=== PATIENT | female | born 1945 | race Caucasian/White ===

== ENCOUNTER 2022-09-07 12:06 | Emergency (ER) | payer OTHER, SELFPAY ==
--- NOTE | ~2022-09-07 | XR_ITS ---
EXAMINATION: XR CHEST CLINICAL INFORMATION: Shortness of breath COMPARISON: 09/07/2022 1:22 PM TECHNIQUE: 2 views of the chest were obtained. FINDINGS: No significant abnormality is noted involving the heart, lungs, mediastinum, bony thorax or soft tissues. I suspect that the triangular density in the right cardiophrenic angle represents a prominent pericardial fat pad. No interval change when compared to this study from earlier today. XR/XR chest 2V IMPRESSION: No acute intrathoracic disease.
--- NOTE | ~2022-09-07 | XR_ITS ---
EXAMINATION: XR CHEST CLINICAL INFORMATION: Cough, RSV. COMPARISON: None TECHNIQUE: Frontal view of the chest was obtained. FINDINGS: Triangular opacity seen at the right lung base medially. The right upper lung field and left lung are clear. The heart and mediastinal structures are unremarkable. No significant cardiomediastinal shift. Probable old healed fourth rib fracture. XR/XR chest 1V IMPRESSION: Triangular opacity medially at the right lung base is nonspecific and of indeterminate age. This could represent pleural/pericardial reflection/fat pad, but atelectasis cannot be excluded. A lateral view would be helpful in this patient.
[2022-09-07 12:36] VITALS: BP 123/60; PULSE 70; RESP 18; TEMP 36.4; O2SAT 97; BMI 26.8
--- NOTE | 2022-09-07 12:36 | ED_ITS ---
HPI - General Adult General Chief complaint: Upper Respiratory Symptoms <Yue Mcclellan MD - Last Filed: 09/07/22 12:42> Stated complaint: Chest pain/Cough <Yue Mcclellan MD - Last Filed: 09/07/22 12:42> Time Seen by Provider: 09/07/22 17:44 <Yue Mcclellan MD - Last Filed: 09/07/22 12:42> Source: patient <DOMINIQUE Ko - Last Filed: 09/07/22 17:53> Mode of arrival: ambulatory <DOMINIQUE Ko - Last Filed: 09/07/22 17:53> Limitations: no limitations <DOMINIQUE Ko - Last Filed: 09/07/22 17:53> History of Present Illness HPI narrative: Patient is a 77 year old assigned female at with no reported medical history presenting to the emergency department today with a cough. Patient states that for the last 2 weeks she has had a persistent cough and now her chest hurts when she coughs. Patient denies any dizziness, lightheadedness, abdominal pain, nausea, vomiting, fever, chills, blurry vision, double vision, loss of vision, difficulty breathing, shortness of breath, back pain, night sweats, pain with urination, increased urinary frequency, increased urinary urgency, blood in her urine or stool, syncope or a near syncopal episode, recent trauma or falls, bowel incontinence, bladder incontinence, bowel retention, bladder retention, or any other complaints at this time. <DOMINIQUE Ko - Last Filed: 09/07/22 17:53> Onset (ago): week(s) (2) <DOMINIQUE Ko - Last Filed: 09/07/22 17:53> Severity: mild <DOMINIQUE Ko - Last Filed: 09/07/22 17:53> Severity scale (1-10): 2 <DOMINIQUE Ko - Last Filed: 09/07/22 17:53> Relieving factors: none <DOMINIQUE Ko - Last Filed: 09/07/22 17:53> Exacerbating factors: other (coughing) <DOMINIQUE Ko Last Filed: 09/07/22 17:53> Associated symptoms: cough <DOMINIQUE Ko - Last Filed: 09/07/22 17:53> Treatments prior to arrival: none <DOMINIQUE Ko - Last Filed: 09/07/22 17:53> Related Data Home medications: Previous Rx's Medication Instructions Recorded benzonatate 100 mg capsule 100 mg PO BID PRN cough 7 days #14 09/07/22 caps <Yue Mcclellan MD - Last Filed: 09/07/22 12:42> Allergies/adverse reactions: Allergies Allergy/AdvReac Type Severity Reaction Status Date / Time No Known Allergies Allergy Verified 09/07/22 12:39 <Yue Mcclellan MD - Last Filed: 09/07/22 12:42> Review of Systems Constitutional: Constitutional: Reports no additional constitutional complaints, Denies chills, Denies fever(s) and Denies night sweats <DOMINIQUE Ko - Last Filed: 09/07/22 17:53> Eyes: Eyes: Reports no additional eye complaints, Denies blurry vision, Denies change in vision, Denies diplopia, Denies eye discharge, Denies loss of vision and Denies eye pain <DOMINIQUE Ko - Last Filed: 09/07/22 17:53> ENT: Denies dizziness <DOMINIQUE Ko - Last Filed: 09/07/22 17:53> Cardiovascular: Cardiovascular: Reports no additional cardiovascular complaints, Reports chest pain (when coughing), Denies lightheadedness, Denies Loss of Consciousness and Denies dyspnea <DOMINIQUE Ko - Last Filed: 09/07/22 17:53> Respiratory: Respiratory: Reports no additional respiratory complaints, Reports cough and Denies dyspnea <DOMINIQUE Ko - Last Filed: 09/07/22 17:53> Gastrointestinal: Gastrointestinal: Reports no additional gastrointestinal complaints, Denies abdominal pain, Denies melena, Denies hematochezia, Denies change in bowel habits and Denies change in stool character <DOMINIQUE Ko Last Filed: 09/07/22 17:53> Genitourinary: Genitourinary: Denies hematuria, Denies urinary frequency, Denies dysuria, Denies urinary incontinence, Denies urinary hesitancy and Denies urinary urgency <DOMINIQUE Ko Last Filed: 09/07/22 17:53> Musculoskeletal: Musculoskeletal: Reports no additional musculoskeletal complaints, Denies numbness and Denies tingling <DOMINIQUE Ko - Last Filed: 09/07/22 17:53> Neurologic: Denies dizziness, Denies loss of vision, Denies numbness and Denies tingling <DOMINIQUE Ko - Last Filed: 09/07/22 17:53> Psychiatric: Psychiatric: Reports no additional psychiatric complaints <DOMINIQUE Ko - Last Filed: 09/07/22 17:53> Endocrine: Endocrine: Reports no additional endocrine complaints <DOMINIQUE Ko - Last Filed: 09/07/22 17:53> Hematologic/Lymphatic: Hematologic/Lymphatic: Reports no additional hematologic/lymphatic complaints <DOMINIQUE Ko - Last Filed: 09/07/22 17:53> Allergic/Immunologic: Allergic/Immunologic: Reports no additional allergic/immunologic complaints <DOMINIQUE Ko - Last Filed: 09/07/22 17:53> PMFSH Past Medical History Attestation statement: The following information was validated with the patient. <DOMINIQUE Ko - Last Filed: 09/07/22 17:53> Source: old records reviewed <DOMINIQUE Ko - Last Filed: 09/07/22 17:53> Physical Exam ED Vital Signs: Vital Signs - 24 hr 09/07/22 12:36 Temperature 97.6 F Pulse Rate 70 Respiratory Rate 18 Blood Pressure 123/60 Pulse Oximetry 97 Oxygen Delivery Method Room Air BMI result Body Mass Index 26.8 <Yue Mcclellan MD - Last Filed: 09/07/22 12:42> Vital Signs - 24 hr 09/07/22 12:36 Temperature 97.6 F Pulse Rate 70 Respiratory Rate 18 Blood Pressure 123/60 Pulse Oximetry 97 Oxygen Delivery Method Room Air BMI result Body Mass Index 26.8 <DOMINIQUE Ko - Last Filed: 09/07/22 17:53> Const General: cooperative, no acute distress, alert and awake <DOMINIQUE Ko - Last Filed: 09/07/22 17:53> Nutritional Appearance: well nourished <DOMINIQUE Ko - Last Filed: 09/07/22 17:53> Orientation/consciousness: patient oriented x3 <DOMINIQUE Ko - Last Filed: 09/07/22 17:53> Limitations: no limitations <Radha Tuckerlaila TN - Last Filed: 09/07/22 17:53> HENMT Head: Yes normal to inspection and Yes atraumatic <Radha Tuckerlaila TN - Last Filed: 09/07/22 17:53> Ears: hearing grossly normal bilaterally and external ears normal <Radhaetienne Tuckerlaila TN - Last Filed: 09/07/22 17:53> General nose exam: Normal external nose present, no nasal discharge noted and no epistaxis <Radha Tuckerlaila TN - Last Filed: 09/07/22 17:53> Face and sinus: Yes normal facial exam, No abrasion and No laceration <Radha Aylin TN - Last Filed: 09/07/22 17:53> Mouth: Normal oral and palatal mucosa present, no drooling and no muffled voice <Radhaetienne Tuckerlaila TN - Last Filed: 09/07/22 17:53> Eyes General: appearance normal, both eyes and all related structures <Radhaetienne Tuckerlaila TN - Last Filed: 09/07/22 17:53> Periorbital: periorbital findings normal <Radha Tuckerlaila TN - Last Filed: 09/07/22 17:53> Eyelids: Yes eyelids normal <Radha Tuckerlaila TN - Last Filed: 09/07/22 17:53> Conjunctivae: conjunctivae normal <Radha Tuckerlaila TN - Last Filed: 09/07/22 17:53> Pupils: Equal, round and reactive pupils present <Radha Aylin TN - Last Filed: 09/07/22 17:53> EOM: EOMs intact bilaterally <Radha Tuckerlaila TN - Last Filed: 09/07/22 17:53> Neck Neck: Yes normal visual inspection, Yes full ROM and Yes no lymphadenopathy <Radha Aylin TN - Last Filed: 09/07/22 17:53> Chest Chest palpation & inspection: normal inspection of the chest <DOMINIQUE Ko - Last Filed: 09/07/22 17:53> Resp Effort & Inspection: normal respiratory effort and able to speak in complete sentences <Radha Viera TN - Last Filed: 09/07/22 17:53> Auscultation: clear to auscultation bilaterally <Radha Viera PA - Last Filed: 09/07/22 17:53> Cardio Rate: regular rate <Radha Viera PA - Last Filed: 09/07/22 17:53> Rhythm: regular rhythm <Radha Viera PA - Last Filed: 09/07/22 17:53> GI Inspection: Yes normal to inspection <Radha Viera PA - Last Filed: 09/07/22 17:53> Neuro General: patient oriented x3 and moves all extremities <Radha Viera PA - Last Filed: 09/07/22 17:53> Cranial nerves: Yes Equal, round and reactive pupils present <Radha Viera PA - Last Filed: 09/07/22 17:53> Cognition (Neuro): normal cognition <Radha Viera PA - Last Filed: 09/07/22 17:53> Motor exam (neuro): 5/5 motor strength present throughout <Radha Viera PA - Last Filed: 09/07/22 17:53> Sensory Exam: Normal double simultaneous stimulation for sensation <Radha Viera PA - Last Filed: 09/07/22 17:53> Coordination: [id number] test normal <Radha Viera PA - Last Filed: 09/07/22 17 :53> Extrem General: Yes normal to inspection, Yes full ROM and Yes capillary refill normal <Radha Viera PA - Last Filed: 09/07/22 17:53> Psych Appearance: grossly normal <Radha Tuckerlaila PA - Last Filed: 09/07/22 17:53> Mental Status: mental status grossly normal <Radha Viera PA - Last Filed: 09/07/22 17:53> Affect: normal affect <Radha Viera PA - Last Filed: 09/07/22 17:53> Attitude: cooperative <Radha TuckerDOMINIQUE ulloa - Last Filed: 09/07/22 17:53> Thought process: Normal thought process present <Radha TuckerDOMINIQUE ulloa - Last Filed: 09/07/22 17:53> Thought content: Normal thought content present <Radha TuckerDOMINIQUE ulloa - Last Filed: 09/07/22 17:53> Insight: Good insight present (Psych) <DOMINIQUE Ko - Last Filed: 09/07/22 17:53> Course Course Course Narrative: -c/o coughing for 2 weeks, dry cough, CP sternal area, intermittent, hurting now, been constant since yesterday , almost 24 hours now -c/o ZEE since last night, took advil last night -pt states initially she sarted feeling better, and couple of days all her symptoms returned -pt was exposed to her grandaughter who tested + for RSV -PMH: hypothyroidsim -PE: well apearing, clear lung sounds, o2 was 97% RA -f/u labs, ekg, cxr <Yue Mcclellan MD - Last Filed: 09/07/22 12:42> Medical Decision Making MDM Narrative Medical decision making narrative: Patient is a 77 year old assigned female at with no reported medical history presenting to the emergency department today with a cough and chest pain when coughing. Patient's physical exam was unremarkable. Patient's blood work was unremarkable. Patient's EKG was unremarkable. Patient's chest x-ray showed no acute process. I explained my physical exam findings as well as all test results to the patient. I answered all questions asked by the patient. I stressed the importance of the patient taking her medication as prescribed. I stressed the importance of the patient following up with her primary care provider. I stressed the importance of the patient returning to the emergency department immediately if her symptoms were to worsen or if she were to develop any dizziness, shortness of breath, difficulty breathing, chest pain, blurry vision, loss of vision, nausea, vomiting, abdominal pain, fever, chills, back pain, or any other complaints. Patient verbalized agreement and understanding with this treatment plan and discharge. <DOMINIQUE Ko - Last Filed: 09/07/22 17:53> Medical Records Medical records reviewed: Yes I reviewed the patient's medical records. <DOMINIQUE Ko - Last Filed: 09/07/22 17:53> Lab Data Lab results reviewed: Yes I reviewed the patient's lab results. <DOMINIQUE Ko - Last Filed: 09/07/22 17:53> Result diagrams: : 09/07/22 12:53 09/07/22 12:53 <Yue Mcclellan MD - Last Filed: 09/07/22 12:42> Labs: Lab Results 09/07/22 09/07/22 09/07/22 Range/Units 12:53 12:53 12:53 WBC 6.1 (4.8-10.8) X10*3/uL RBC 4.22 (4.20-5.50) X10*6/uL Hgb 10.2 L (12.0-16.0) g/dl Hct 34.0 L (37.0-47.0) % MCV 80.6 (80.0-98.0) fL MCH 24.2 L (27.0-33.0) pg MCHC 30.0 L (31.0-35.0) g/dl RDW 16.0 (11.0-16.0) % Plt Count 317 (160-400) X10*3/uL MPV 10.0 (9.4-12.3) fL Immature Gran % (Auto) 0.3 (0.0-0.4) % Neut % (Auto) 55.5 (45-73) % Lymph % (Auto) 26.2 (20-40) % [place] % (Auto) 14.1 H (2-11) % Eos % (Auto) 3.1 (0-4) % Baso % (Auto) 0.8 (0-2) % Lymph # (Auto) 1.6 (1.2-4.9) X10*3/uL [place] # (Auto) 0.9 (0.1-1.2) X10*3/uL Eos # (Auto) 0.2 (0.0-0.4) X10*3/uL Baso # (Auto) 0.1 (0.0-0.2) X10*3/uL Abs Immat Gran (auto) 0.02 (0.00-0.03) X10*3/uL Absolute Neuts (auto) 3.4 (2.0-8.3) x10*3/uL Absolute Nucleated RBC 0.000 (0.0-0.012) X10*3/uL Nucleated RBC % (auto) 0.0 (0.0-0.2) /100WBC Sodium 139 (135-145) mmol/L Potassium 5.0 (3.3-5.1) mmol/L Chloride 107 (96-108) mmol/L Carbon Dioxide 25 (22-29) mmol/L Anion Gap 12 (12-20) BUN 10 (9-16) mg/dL Creatinine 0.73 (0.5-1.4) mg/dL Estim Creat Clear Calc 69.0 Estimated GFR > 60 Random Glucose 87 (60-115) mg/dL Calcium 8.3 L (8.4-10.2) mg/dL Troponin I High Sens < 3.5 (<3.5-17.0) ng/L Influenza Type A (PCR) (Negative) Influenza Type B (PCR) (Negative) RSV RNA Qual (PCR) (Negative) SARS-CoV-2 RNA (RT-PCR) (Negative) 09/07/22 Range/Units 13:43 WBC (4.8-10.8) X10*3/uL RBC (4.20-5.50) X10*6/uL Hgb (12.0-16.0) g/dl Hct (37.0-47.0) % MCV (80.0-98.0) fL MCH (27.0-33.0) pg MCHC (31.0-35.0) g/dl RDW (11.0-16.0) % Plt Count (160-400) X10*3/uL MPV (9.4-12.3) fL Immature Gran % (Auto) (0.0-0.4) % Neut % (Auto) (45-73) % Lymph % (Auto) (20-40) % [place] % (Auto) (2-11) % Eos % (Auto) (0-4) % Baso % (Auto) (0-2) % Lymph # (Auto) (1.2-4.9) X10*3/uL [place] # (Auto) (0.1-1.2) X10*3/uL Eos # (Auto) (0.0-0.4) X10*3/uL Baso # (Auto) (0.0-0.2) X10*3/uL Abs Immat Gran (auto) (0.00-0.03) X10*3/uL Absolute Neuts (auto) (2.0-8.3) x10*3/uL Absolute Nucleated RBC (0.0-0.012) X10*3/uL Nucleated RBC % (auto) (0.0-0.2) /100WBC Sodium (135-145) mmol/L Potassium (3.3-5.1) mmol/L Chloride (96-108) mmol/L Carbon Dioxide (22-29) mmol/L Anion Gap (12-20) BUN (9-16) mg/dL Creatinine (0.5-1.4) mg/dL Estim Creat Clear Calc Estimated GFR Random Glucose (60-115) mg/dL Calcium (8.4-10.2) mg/dL Troponin I High Sens (<3.5-17.0) ng/L Influenza Type A (PCR) NEGATIVE (Negative) Influenza Type B (PCR) NEGATIVE (Negative) RSV RNA Qual (PCR) NEGATIVE (Negative) SARS-CoV-2 RNA (RT-PCR) NEGATIVE (Negative) <Yue Mcclellan MD - Last Filed: 09/07/22 12:42> Lab Results 09/07/22 09/07/22 09/07/22 Range/Units 12:53 12:53 12:53 WBC 6.1 (4.8-10.8) X10*3/uL RBC 4.22 (4.20-5.50) X10*6/uL Hgb 10.2 L (12.0-16.0) g/dl Hct 34.0 L (37.0-47.0) % MCV 80.6 (80.0-98.0) fL MCH 24.2 L (27.0-33.0) pg MCHC 30.0 L (31.0-35.0) g/dl RDW 16.0 (11.0-16.0) % Plt Count 317 (160-400) X10*3/uL MPV 10.0 (9.4-12.3) fL Immature Gran % (Auto) 0.3 (0.0-0.4) % Neut % (Auto) 55.5 (45-73) % Lymph % (Auto) 26.2 (20-40) % [place] % (Auto) 14.1 H (2-11) % Eos % (Auto) 3.1 (0-4) % Baso % (Auto) 0.8 (0-2) % Lymph # (Auto) 1.6 (1.2-4.9) X10*3/uL [place] # (Auto) 0.9 (0.1-1.2) X10*3/uL Eos # (Auto) 0.2 (0.0-0.4) X10*3/uL Baso # (Auto) 0.1 (0.0-0.2) X10*3/uL Abs Immat Gran (auto) 0.02 (0.00-0.03) X10*3/uL Absolute Neuts (auto) 3.4 (2.0-8.3) x10*3/uL Absolute Nucleated RBC 0.000 (0.0-0.012) X10*3/uL Nucleated RBC % (auto) 0.0 (0.0-0.2) /100WBC Sodium 139 (135-145) mmol/L Potassium 5.0 (3.3-5.1) mmol/L Chloride 107 (96-108) mmol/L Carbon Dioxide 25 (22-29) mmol/L Anion Gap 12 (12-20) BUN 10 (9-16) mg/dL Creatinine 0.73 (0.5-1.4) mg/dL Estim Creat Clear Calc 69.0 Estimated GFR > 60 Random Glucose 87 (60-115) mg/dL Calcium 8.3 L (8.4-10.2) mg/dL Troponin I High Sens < 3.5 (<3.5-17.0) ng/L Influenza Type A (PCR) (Negative) Influenza Type B (PCR) (Negative) RSV RNA Qual (PCR) (Negative) SARS-CoV-2 RNA (RT-PCR) (Negative) 09/07/22 Range/Units 13:43 WBC (4.8-10.8) X10*3/uL RBC (4.20-5.50) X10*6/uL Hgb (12.0-16.0) g/dl Hct (37.0-47.0) % MCV (80.0-98.0) fL MCH (27.0-33.0) pg MCHC (31.0-35.0) g/dl RDW (11.0-16.0) % Plt Count (160-400) X10*3/uL MPV (9.4-12.3) fL Immature Gran % (Auto) (0.0-0.4) % Neut % (Auto) (45-73) % Lymph % (Auto) (20-40) % [place] % (Auto) (2-11) % Eos % (Auto) (0-4) % Baso % (Auto) (0-2) % Lymph # (Auto) (1.2-4.9) X10*3/uL [place] # (Auto) (0.1-1.2) X10*3/uL Eos # (Auto) (0.0-0.4) X10*3/uL Baso # (Auto) (0.0-0.2) X10*3/uL Abs Immat Gran (auto) (0.00-0.03) X10*3/uL Absolute Neuts (auto) (2.0-8.3) x10*3/uL Absolute Nucleated RBC (0.0-0.012) X10*3/uL Nucleated RBC % (auto) (0.0-0.2) /100WBC Sodium (135-145) mmol/L Potassium (3.3-5.1) mmol/L Chloride (96-108) mmol/L Carbon Dioxide (22-29) mmol/L Anion Gap (12-20) BUN (9-16) mg/dL Creatinine (0.5-1.4) mg/dL Estim Creat Clear Calc Estimated GFR Random Glucose (60-115) mg/dL Calcium (8.4-10.2) mg/dL Troponin I High Sens (<3.5-17.0) ng/L Influenza Type A (PCR) NEGATIVE (Negative) Influenza Type B (PCR) NEGATIVE (Negative) RSV RNA Qual (PCR) NEGATIVE (Negative) SARS-CoV-2 RNA (RT-PCR) NEGATIVE (Negative) <DOMINIQUE Ko - Last Filed: 09/07/22 17:53> Imaging Data Chest x-ray: Attestation: I personally reviewed and interpreted this imaging study as follows: <DOMINIQUE Ko - Last Filed: 09/07/22 17:53> My impression: No acute process. <DOMINIQUE Ko - Last Filed: 09/07/22 17:53> Radiologist's impression: EXAMINATION: XR CHEST CLINICAL INFORMATION: Shortness of breath COMPARISON: 09/07/2022 1:22 PM TECHNIQUE: 2 views of the chest were obtained. FINDINGS: No significant abnormality is noted involving the heart, lungs, mediastinum, bony thorax or soft tissues. I suspect that the triangular density in the right cardiophrenic angle represents a prominent pericardial fat pad. No interval change when compared to this study from earlier today. XR/XR chest 2V IMPRESSION: No acute intrathoracic disease. Dictated By: Tyler Zelaya MD Signed By: Electronically signed by Tyler Zelaya MD 09/07/22 1720 <DOMINIQUE Ko - Last Filed: 09/07/22 17:53> ECG Data Attestation: I personally reviewed and interpreted this ECG as follows: <DOMINIQUE Ko - Last Filed: 09/07/22 17:53> Prior ECG tracings: available for review <DOMINIQUE Ko - Last Filed: 09/07/22 17:53> Interpretation: Vent. Rate: 069 BPM ? ? Atrial Rate: 069 BPM P-R Int: 156 ms? QRS Dur: 068 ms QT Int: 378 ms ? ? ? P-R-T Axes: 074 013 042 degrees QTc Int: 405 ms ? Normal sinus rhythm Low voltage QRS Normal ECG No previous ECGs available ? Electronically Signed By:MINDY KELSEY MD Dictated By: Manjinder Kelsey MD Signed By: Electronically signed by Manjinder Kelsey MD 09/07/22 1438 <DOMINIQUE Ko - Last Filed: 09/07/22 17:53> Discharge Plan Discharge Clinical Impression: Upper respiratory infection <Yue Mcclellan MD - Last Filed: 09/07/22 12:42> Patient Disposition: Home, Self-Care <Yue Mcclellan MD - Last Filed: 09/07/22 12:42> Instructions: Upper Respiratory Infection (ED) <Yue Mcclellan MD - Last Filed: 09/07/22 12:42> Additional Instructions: Follow up with your primary care provider. Return to the emergency department immediately if your symptoms worsen or if you develop any dizziness, shortness of breath, difficulty breathing, chest pain, blurry vision, loss of vision, nausea, vomiting, abdominal pain, fever, chills, back pain, or any other complaints. <Yue Mcclellan MD - Last Filed: 09/07/22 12:42> Prescriptions: New benzonatate 100 mg capsule 100 mg PO BID PRN (Reason: cough) 7 Days Qty: 14 0RF <Yue Mcclellan MD - Last Filed: 09/07/22 12:42> Print Language: Cymro <Yue Mcclellan MD - Last Filed: 09/07/22 12:42>
--- NOTE | 2022-09-07 12:40 | ECG_ITS ---
Test Reason : Chest pain Blood Pressure : / mmHG Vent. Rate : 069 BPM Atrial Rate : 069 BPM P-R Int : 156 ms QRS Dur : 068 ms QT Int : 378 ms P-R-T Axes : 074 013 042 degrees QTc Int : 405 ms Normal sinus rhythm Low voltage QRS Normal ECG No previous ECGs available Referred By: Yue Mcclellan Electronically Signed By:MINDY KELSEY MD
[2022-09-07 12:58] LABS: MANUAL DIFF FLAG NO
[2022-09-07 13:00] LABS: Basophils Absolute Auto 0.1 X10*3/uL (0.0-0.2); Basophils Percent Auto 0.8 % (0-2); Eosinophils Absolute Auto 0.2 X10*3/uL (0.0-0.4); Eosinophils Percent Auto 3.1 % (0-4); Hemoglobin 10.2 g/dl (12.0-16.0); Imm Gran Abs Auto 0.02 X10*3/uL (0.00-0.03); Imm Gran Pct Auto 0.3 % (0.0-0.4); Lymphocytes Absolute Auto 1.6 X10*3/uL (1.2-4.9); Lymphocytes Percent Auto 26.2 % (20-40); Mean Corpuscular Hemoglobin 24.2 pg (27.0-33.0); Mean Corpuscular Volume 80.6 fL (80.0-98.0); Monocytes Absolute Auto 0.9 X10*3/uL (0.1-1.2); Monocytes Percent Auto 14.1 % (2-11); Neutrophils Absolute Auto 3.4 x10*3/uL (2.0-8.3); Neutrophils Percent Auto 55.5 % (45-73); Platelet Count 317 X10*3/uL (160-400); Red Blood Count 4.22 X10*6/uL (4.20-5.50); White Blood Count 6.1 X10*3/uL (4.8-10.8)
[2022-09-07 13:22] LABS: Anion Gap 12 (12-20); Blood Urea Nitrogen 10 mg/dL (9-16); Calcium 8.3 mg/dL (8.4-10.2); Carbon Dioxide 25 mmol/L (22-29); Chloride 107 mmol/L (96-108); Estimated Glomerular Filt Rate > 60; Glucose Random 87 mg/dL (60-115); Sodium 139 mmol/L (135-145)
[2022-09-07 13:30] LABS: Troponin-I High Sensitivity < 3.5 ng/L (<3.5-17.0)
[2022-09-07 15:01] LABS: Influenza A PCR NEGATIVE (Negative); Influenza B PCR NEGATIVE (Negative); Resp Syncy Virus RNA Qual PCR NEGATIVE (Negative); SARS COV2 PCR INHOUSE NEGATIVE (Negative)
== END 2022-09-07 18:04 | disposition home or self-care (01) ==
PROVIDERS: Emergency Medicine; Emergency Provider Internal Medicine
DX: J06.9 Acute upper respiratory infection, unspecified (principal); Z20.822 Contact with and (suspected) exposure to COVID-19; R05.9 Cough, unspecified
CPT/HCPCS: 0241U; 36415; 71045; 71046; 80048; 84484; 85025; 93005; 99283